=== PATIENT | female | born 1955 | race Caucasian/White ===

== ENCOUNTER 2024-03-10 23:37 | Emergency (ER) | payer MEDICAID ==
[~2024-03-10] VITALS: Ht 152.4 cm; Wt 58.9 kg
[2024-03-11 00:35] VITALS: O2SAT 99
[2024-03-11 02:16] VITALS: TEMP 36.89184
[2024-03-11 02:35] LABS: EOSINOPHILS % 5.9 % (0.0-5.0); HEMATOCRIT. 35.3 % (36.0-48.0); HEMOGLOBIN. 11.6 g/dL (12.0-16.0); LYMPHOCYTES % 28.3 % (20.0-50.0); MEAN CORPUSCULAR HGB CONC 32.9 g/dL (31.0-37.0); MEAN CORPUSCULAR VOLUME 88.1 fL (81.0-99.0); MEAN PLATELET VOLUME 9.6 fl (7.4-10.4); MONOCYTES % 6.9 % (2.0-8.0); NEUTROPHILS % 57.9 % (40.0-76.0); PLATELET 269 x1000/uL (130-400); RED BLOOD CELL COUNT 4.01 mill/uL (4.2-5.4); RED CELL DISTRIBUTION WIDTH 14.4 % (11.6-14.6); WHITE BLOOD COUNT 6.8 x1000/uL (4.5-11.0)
[2024-03-11 02:37] VITALS: BP 173/62; PULSE 50; RESP 18; O2SAT 98
[2024-03-11 03:05] LABS: POTASSIUM 4.9 mEq/L (3.5-5.1)
[2024-03-11 03:06] LABS: CALCIUM 8.6 mg/dL (8.7-10.4)
[2024-03-11 03:11] LABS: CREATININE 1.9 mg/dL (0.6-1.0)
[2024-03-11] MEDS ORDERED: INSULIN REGULAR (HUMULIN R) 1000UNITS/10ML VIAL SUBCUT STA (03:33)
[2024-03-11] MEDS ORDERED: SODIUM CHLORIDE 0.9% 500 ML IV ONE (03:45)
== END 2024-03-11 04:30 | disposition left against medical advice (07) ==
LOC: ER 23:53
DX: N17.9 Acute kidney failure, unspecified (principal); R51.9 Headache, unspecified; I10 Essential (primary) hypertension; E11.65 Type 2 diabetes mellitus with hyperglycemia
CPT/HCPCS: 99284; 70450; 80048; 85025; 36415; 93005; J7030; J1815